=== PATIENT | female | born 1990 | race Caucasian/White ===

== ENCOUNTER 2019-01-21 01:00 | Emergency (ER) | payer SELFPAY ==
[2019-01-21] MEDS ORDERED: 0.9 % SODIUM CHLORIDE 1,000 ML IV ONE ×2 (01:21→01:46)
[2019-01-21] MEDS ORDERED: INSULIN REGULAR, HUMAN 100 UNIT/ML 10ML VIAL SQ ONE (01:22)
--- NOTE | 2019-01-21 01:27 | ED Physician Documentation ---
Female Urogenital Problems - HISTORIAN Historian: patient - HPI Stated Complaint: dysuria Chief Complaint: Female Urogenital Problems Additional Information: Patient presents to ED with a one day history of dysuria, urinary frequency, nausea/vomiting and generalized abdominal pain. Patient is type 1 diabetic and has not been taking her insulin like she should. She is traveling from [place] to [place]. Patient reports going to [place] to connect with a man she met on the internet. She spent the last week with him and states she probably has a urinary tract infection from sexual intercourse. Current blood sugars are 312. Patient report insulin regimen of 15 units with meals, none at bedtime. Last hospitalization for DKA was about a year ago. She states she has had urinary tract infections before and this feels the same. Onset: hours (12) Severity: mild Location of Pain: flank pain - Vaginal Bleeding Sexual History: active Contraceptive: none - Associated Symptoms Urinary Symptoms: frequent urination, burning w/ urination, urgency w/ urination Discharge: denies: vaginal discharge - ROS CONST: none GI/: nausea, vomiting CVS/RESP: denies: chest pain, shortness of breath NEURO/PSYCH: headache MS/SKIN/LYMPH: denies: rash - PAST HX Past History: none Other History: kidney stone(s), diabetes Type 1 Surgeries/Procedures: none Allergies/Adverse Reactions: Allergies Allergy/AdvReac Type Severity Reaction Status Date / Time cephalexin Allergy Verified 01/21/19 01:33 Home Medications: Ambulatory Orders Medication Instructions Recorded Insulin NPH Hum/Reg Insulin Hm 15 units SQ AC15 01/21/19 [Relion Novolin 70-30 Vial] - SOCIAL HX Smoking History: non-smoker Alcohol Use: none Drug Use: none - FAMILY HX Family History: none - REVIEWED ASSESSMENTS Nursing Assessment Reviewed: Yes Vitals Reviewed: Yes Progress - Progress Progress: 0220 Venous gas ph 7.03, pCO2 31, pO2 12. Will transfer to higher level of care for admission to ICU 0230 Discussed with [facility] for transfer. Await call back. 0255 Dr. Kevin, hospitalist with [facility] agrees to accept patient. Will arrange transfer. ED Results Lab/Radiology - Lab Results Lab Results: UA - +2 glucose, +2 blood, specific gravity >1.030, 2+ protein, nitrate neg, leukocytes neg HCG - negative. - Orders Orders: ED Orders Category Date Time Status Place IV Lock 1T Care 01/21/19 01:21 Ordered CBC/PLATELET/DIFF Routine Lab 01/21/19 Ordered CMP [CMP] Routine Lab 01/21/19 Ordered Insulin Regular, Human [NovoLIN R] Med 01/21/19 01:22 Once 15 unit SQ NOW ONE NORMAL SALINE @ 1000 MLS/HR ( 1000ml BOLUS) Med 01/21/19 01:21 Ordered 0.9 % Sodium Chloride [Normal Saline] 1,000 ml IV Q1H Female Urogenital Problems - EXAM General Appearance: no acute distress, alert EENT: DENISA Respiratory: no resp. distress, breath sounds nml CVS: reg rate & rhythm, heart sounds normal Abdomen: soft, non-tender, nml bowel sounds Back: CVA tenderness Skin: color nml, no rash, warm,dry Extremities: non-tender, edema Neuro: oriented X3, mood/affect nml Discharge Clincal Impression: DKA (diabetic ketoacidoses) Qualifiers: Diabetes mellitus type: type 1 Diabetes mellitus complication detail: without coma Qualified Code(s): E10.10 - Type 1 diabetes mellitus with ketoacidosis without coma Additional Instructions: Will transfer to [facility] to ICU for DKA Condition: Stable Disposition: 02 XFER SHT-TRM HOSP Decision to Admit: NO Date of Decison to Admit: 01/21/19 Decision Time: 02:59
[2019-01-21] MEDS ORDERED: ONDANSETRON HCL/PF 4 MG/ 2ML VIAL IVP ONE ×2 (01:31→02:43)
[2019-01-21] MEDS ORDERED: AZITHROMYCIN 1 GM PACKET PO ONE (01:42)
[2019-01-21 02:04] LABS: eGFR (Non-African) > 60
[2019-01-21 04:30] VITALS: BP 118/81
[2019-01-21 09:01] LABS: BASOPHILS % 0.9 % (0.0-1.5); SEGMENTED NEUTROPHILS % 79 % (39-79)
[2019-01-22 06:10] LABS: OCCULT BLOOD,URINE 2+ (NEGATIVE); PH URINE 5.5 (5.0 - 8.0); UROBILINOGEN URINE 0.2 Eu (0.2-1.0)
== END 2019-01-21 03:20 | disposition short-term general hospital (02) ==
LOC: ED 01:00
DX: E10.10 Type 1 diabetes mellitus with ketoacidosis without coma (principal)
CPT/HCPCS: 36415; 80053; 81002; 82805; 85025; 96361; 96374; 96376; 99282; 99284; J0456; J1815; J2405; J7030; S1016